=== PATIENT | male | born 1950 | race Caucasian/White ===

== ENCOUNTER 2020-03-28 12:29 | Emergency (ER) | payer OTHER ==
[~2020-03-28] VITALS: Ht 177.8 cm; Wt 93.0 kg
[2020-03-28] MEDS ORDERED: GLUMETZA1000 MG (12:37)
[2020-03-28] MEDS ORDERED: KETO10TA2 PO (15:26)
[2020-03-28] MEDS ORDERED: NORFLEX100MG PO (15:26)
== END 2020-03-28 15:47 | disposition home or self-care (01) ==
LOC: ER 12:29
DX: S30.0XXA Contusion of lower back and pelvis, initial encounter (principal); W18.09XA Striking against other object with subsequent fall, initial encounter; Y93.89 Activity, other specified; Y92.018 Other place in single-family (private) house as the place of occurrence of the external cause; Y99.8 Other external cause status

== ENCOUNTER 2022-09-24 13:47 | Emergency (ER) | payer OTHER ==
[~2022-09-24] VITALS: Ht 177.8 cm; Wt 93.0 kg
[~2022-09-24 13:47] MED LIST: GLUMETZA1000 MG; KETO10TA2 PO; NORFLEX100MG PO
== END 2022-09-25 01:53 | disposition home or self-care (01) ==
LOC: ER 13:47
DX: L03.116 Cellulitis of left lower limb (principal); R05.9 Cough, unspecified; Z88.0 Allergy status to penicillin; Z88.2 Allergy status to sulfonamides; Z20.822 Contact with and (suspected) exposure to COVID-19

== ENCOUNTER 2022-12-11 14:02 | Emergency (ER) | payer OTHER ==
[~2022-12-11] VITALS: Ht 180.3 cm; Wt 89.8 kg
[2022-12-11] MEDS ORDERED: GLIPIZIDE XL5 MG PO (14:36)
[2022-12-11] MEDS ORDERED: LEVOFLOXACIN750 MG PO (17:57)
== END 2022-12-11 18:01 | disposition home or self-care (01) ==
LOC: ER 14:02
DX: L03.115 Cellulitis of right lower limb (principal)

== ENCOUNTER 2023-11-23 13:13 | Emergency (ER) | payer OTHER ==
[~2023-11-23] VITALS: Ht 177.8 cm; Wt 81.6 kg
[~2023-11-23 13:13] MED LIST changes: +ATENOLOL-CHLORT1 TAB PO; +GLIPIZIDE XL5 MG PO; +LEVOFLOXACIN750 MG PO
[2023-11-23] MEDS ORDERED: TENORETIC 1001 EACH (13:17)
[2023-11-23] MEDS ORDERED: CIPROFLOXACIN IN 5 % DEXTROSE 400 MG/200 ML PIGGYBAG IV ONE ×2 (13:45→14:27)
[2023-11-23 14:29] LABS: HEMATOCRIT 37.5 % (39.0-48.0); HEMOGLOBIN 12.9 g/dL (13-16.00); MEAN CELL VOLUME 92.6 fL (80.0-100.00); MEAN CORPUSCULAR HEMOGLOBIN 31.8 pg (27.00-32.0); MEAN CORPUSCULAR HGB CONC 34.4 g/dl (32.0-36.0); PLATELET COUNT 197 K/uL (150-450); RED BLOOD COUNT 4.05 M/uL (4.00-6.00); RED CELL DISTRIBUTION WIDTH 16.3 % (11.5-14.5)
[2023-11-23 14:42] LABS: ERYTHROCYTE SEDIMENTATION RATE 26 mm/hr
[2023-11-23 15:52] LABS: URINE APPEARANCE Clear; URINE BILIRRUBIN Negative (NEGATIVE); URINE BLOOD Negative; URINE COLOR Yellow; URINE GLUCOSE Negative (NEGATIVE); URINE LEUKOCYTE Moderate; URINE NITRATE Positive; URINE PROTEIN Negative (NEGATIVE); URINE UROBILINOGEN 0.2 E.U./dl
[2023-11-23 15:53] LABS: CALCIUM 8.3 mg/dL (8.5-10.1); CREATININE SERUM 1.32 mg/dL (0.70-1.30); GFR 52.87; POTASSIUM 3.77 mEq/L (3.5-5.1); URIC ACID 7.4 mg/dL (3.5-8.5)
[2023-11-23 15:53] LABS: URINE BACTERIA 584.5 uL (0.0-1933); URINE EPITHELIAL CELLS 7.5 uL (0.0-38.8); URINE RBC 2.4 uL (0.0-20.8); URINE WBC 277.5 uL (0.0-23.2)
[2023-11-23] MEDS ORDERED: CIPRO500 MG PO (16:13)
== END 2023-11-23 16:21 | disposition home or self-care (01) ==
LOC: ER 13:14
PROVIDERS: General Practice
DX: L03.114 Cellulitis of left upper limb (principal); Z88.2 Allergy status to sulfonamides; Z88.0 Allergy status to penicillin; E11.9 Type 2 diabetes mellitus without complications; Z79.84 Long term (current) use of oral hypoglycemic drugs
CPT/HCPCS: 96365; 99282; J0744

== ENCOUNTER 2024-07-16 06:57 | Day surgery (SDC) | payer OTHER ==
[2024-07-10 09:58] LABS: PH,URINE 5.5 (5.0-8.0); URINE APPEARANCE Clear; URINE BILIRRUBIN Negative (NEGATIVE); URINE BLOOD Negative; URINE COLOR Yellow; URINE GLUCOSE Negative (NEGATIVE); URINE KETONE Negative (NEGATIVE); URINE LEUKOCYTE Small; URINE NITRATE Negative; URINE PROTEIN Trace (NEGATIVE); URINE UROBILINOGEN 0.2 E.U./dl
[2024-07-10 10:00] LABS: HEMATOCRIT 40.3 % (39.0-48.0); HEMOGLOBIN 13.9 g/dL (13-16.00); MEAN CORPUSCULAR HEMOGLOBIN 32.4 pg (27.00-32.0); MEAN CORPUSCULAR HGB CONC 34.5 g/dl (32.0-36.0); PLATELET COUNT 138 K/uL (150-450); RED BLOOD COUNT 4.28 M/uL (4.00-6.00); RED CELL DISTRIBUTION WIDTH 14.8 % (11.5-14.5)
[2024-07-10 10:02] LABS: URINE BACTERIA 42.8 uL (0.0-1933); URINE EPITHELIAL CELLS 7.4 uL (0.0-38.8); URINE RBC 4.8 uL (0.0-20.8); URINE WBC 28.7 uL (0.0-23.2)
[2024-07-10 10:05] LABS: URINE CAST 0.29 uL (0.0-1.40)
[2024-07-10 10:22] LABS: INR 1.13; PARTIAL THROMBOPLASTIN TIME 28.8 SECONDS (22.0-34.0); PROTHROMBIN TIME 12.2 SECONDS (9.0-11.5)
[2024-07-10 10:34] LABS: ALBUMIN 3.4 gm/dL (3.4-5.0); BILIRUBIN TOTAL 0.46 mg/dL (0.3-1.2); CALCIUM 8.9 mg/dL (8.5-10.1); CREATININE SERUM 1.25 mg/dL (0.70-1.30); GFR 56.31; GLOBULINA 4.8 G/DL (2.4-3.5); POTASSIUM 3.79 mEq/L (3.5-5.1); TOTAL PROTEIN 8.2 gm/dL (6.4-8.2)
[~2024-07-16 06:57] MED LIST changes: +CIPRO500 MG PO; +TENORETIC 1001 EACH
[2024-07-16] MEDS ORDERED: TYLENOL ARTHRI650 MG PO (10:49)
[2024-07-16] MEDS ORDERED: TRAMADOL HCL50 MG PO (10:49)
[2024-07-16] MEDS ORDERED: KETO10TA2 PO (10:49)
[2024-07-16] MEDS ORDERED: MIRALAX17 GM PO (13:02)
[2024-07-16] MEDS ORDERED: CIPROFLOXACIN IN 5 % DEXTROSE 400 MG/200 ML PIGGYBAG IV ONE (13:47)
[2024-07-16] MEDS ORDERED: BUPIVACAINE HCL/MPF 0.5% 30ML VIAL ONE (13:47)
[2024-07-16] MEDS ORDERED: hydrALAZINE HCL 20 MG VIAL ONE (21:13)
[2024-07-16] MEDS ORDERED: hydrALAZINE HCL 20 MG VIAL IV ONE (21:15)
== END 2024-07-16 22:25 | disposition home or self-care (01) ==
LOC: CIR.AMB 06:57
PROVIDERS: ATTEND Surgery
DX: K40.90 Unilateral inguinal hernia, without obstruction or gangrene, not specified as recurrent (principal); K42.0 Umbilical hernia with obstruction, without gangrene; Z88.0 Allergy status to penicillin; Z88.2 Allergy status to sulfonamides; Z91.09 Other allergy status, other than to drugs and biological substances; I10 Essential (primary) hypertension; E11.9 Type 2 diabetes mellitus without complications
CPT/HCPCS: 49650; 49592; C1781